=== PATIENT | male | born 1995 | race Caucasian/White ===

== ENCOUNTER 2016-06-19 08:39 | Emergency (ER) | payer OTHER ==
[~2016-06-19] VITALS: Wt 80.0 kg
[2016-06-19] MEDS ORDERED: KETOROLAC 30 MG INJ IM STA (09:25)
[2016-06-19] MEDS ORDERED: HYDROCODONE/APAP (5/325) TAB PO ONE (09:30)
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
[2016-06-19] MEDS ORDERED: HYDR-906 PO (11:00)
[2016-06-19] MEDS ORDERED: IBUP-1542 PO (11:00)
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
== END 2016-06-19 11:16 | disposition home or self-care (01) ==
LOC: FTE 08:39
DX: S02.609A Fracture of mandible, unspecified, initial encounter for closed fracture (principal); X58.XXXA Exposure to other specified factors, initial encounter; Y92.9 Unspecified place or not applicable
CPT/HCPCS: 70486; 96372; J1885; Z7502; Z7610